=== PATIENT | male | born 1950 | race Caucasian/White ===

== ENCOUNTER 2016-08-14 02:18 | Emergency (ER) | payer MEDICAID ==
[~2016-08-14] VITALS: Ht 177.8 cm; Wt 72.6 kg
[2016-08-14 02:18] VITALS: BP_SYST 132
[2016-08-14] MEDS ORDERED: NACL 0.9% 1,000 ML IV ONE (03:05)
[2016-08-14 04:18] VITALS: BP_SYST 132
[2016-08-16] MEDS ORDERED: CEPH-568 PO (15:18)
[2016-08-16] MEDS ORDERED: ASEN2.5T SL (15:18)
[2016-08-16] MEDS ORDERED: SULF1TAB48 PO (15:18)
== END 2016-08-14 04:18 | disposition home or self-care (01) ==
LOC: SED 02:18
DX: E86.0 Dehydration (principal); Z88.1 Allergy status to other antibiotic agents
CPT/HCPCS: 96360; 99284; J7030

== ENCOUNTER 2016-08-19 12:52 | Emergency (ER) | payer MEDICAID ==
[~2016-08-19] VITALS: Ht 180.3 cm; Wt 88.5 kg
[2016-08-19 12:52] VITALS: BP_SYST 103
[2016-08-19 13:31] LABS: EOSINOPHILS # (AUTO) 0.1 K/uL (0.0-0.4); LYMPHOCYTES # (AUTO) 1.9 K/uL (1.0-5.5); MONOCYTES # (AUTO) 0.8 K/uL (0.0-1.0)
[2016-08-19 13:34] LABS: BASOPHILS % (AUTO) 0.3 % (0.0-2.0); EOSINOPHILS % (AUTO) 1.3 % (0.0-4.0); HEMATOCRIT 46.3 % (36-54); HEMOGLOBIN 15.2 g/dL (14.0-18.0); LYMPHOCYTES % (AUTO) 19.6 % (20.5-51.5); MEAN CORPUSCULAR HEMOGLOBIN 28 pg (27-31); MEAN CORPUSCULAR HGB CONC 33 % (32-36); MEAN CORPUSCULAR VOLUME 85 fL (79.0-98.0); MONOCYTES % (AUTO) 8.5 % (1.7-9.3); NEUTROPHILS # (AUTO) 7.1 K/uL (1.8-7.7); NEUTROPHILS % (AUTO) 70.3 % (40.0-70.0); PLATELET COUNT (AUTO) 301 K/uL (130-430); RED BLOOD CELL COUNT(AUTO) 5.45 MIL/uL (4.2-6.2); RED CELL DISTRIBUTION WIDTH 13.3 % (9.0-15.0); WHITE BLOOD COUNT (AUTO) 9.9 K/uL (4.8-10.8)
[2016-08-19 13:35] LABS: ANION GAP 6 (5-15); CALCIUM 8.8 mg/dL (8.4-11.0); CHLORIDE 91 mmol/L (98-107); CREATININE 1.32 mg/dL (0.55-1.30); POTASSIUM 4.8 mmol/L (3.5-5.1); SODIUM SERUM 127 mmol/L (136-145); UREA NITROGEN, BLOOD 23 mg/dL (8-21)
[2016-08-19 13:37] LABS: ALANINE AMINOTRANSFERASE 96 U/L (12-78); ALBUMIN 2.7 g/dL (3.4-4.8); ASPARTATE AMINOTRANSFERASE 23 U/L (10-37); TOTAL BILIRUBIN 0.6 mg/dL (0.0-1.0); TOTAL PROTEIN, SERUM 6.1 g/dL (6.4-8.3)
[2016-08-19 13:45] LABS: GFR AFRICAN AMERICAN 70 mL/min (>90)
[2016-08-19 13:47] LABS: GLUCOSE 608 mg/dL (70-99)
[2016-08-19 13:54] LABS: ACETONE, SERUM NEGATIVE (NEGATIVE)
[2016-08-19] MEDS ORDERED: INSULIN REGULAR, HUMAN 10 UNITS/0.1 ML INJ IVP ONE (14:00)
[2016-08-19 14:28] VITALS: BP_SYST 150
== END 2016-08-19 14:28 | disposition home or self-care (01) ==
LOC: SED 12:52
DX: E11.65 Type 2 diabetes mellitus with hyperglycemia (principal); J44.9 Chronic obstructive pulmonary disease, unspecified; I25.2 Old myocardial infarction; F17.210 Nicotine dependence, cigarettes, uncomplicated; Z71.6 Tobacco abuse counseling; Z88.1 Allergy status to other antibiotic agents; Z90.89 Acquired absence of other organs
CPT/HCPCS: 36415; 80053; 82009; 82962; 85025; 96372; 99284; J1815

== ENCOUNTER 2016-08-26 10:49 | Emergency (ER) | payer MEDICAID ==
[~2016-08-26] VITALS: Ht 180.3 cm; Wt 88.5 kg
--- NOTE | 2016-08-26 10:55 | NUR ---
Attempted to triage. Pt ambulated to cafeteria steady gait witnessed by staff.
[2016-08-26 11:11] VITALS: BP_SYST 103
--- NOTE | 2016-08-26 11:43 | NUR ---
Pt to bed 8
--- NOTE | 2016-08-26 11:44 | NUR ---
Dr. Desouza at bedside for evaluation
--- NOTE | 2016-08-26 11:45 | NUR ---
Pt states he needs an insulin prescription, his bs was 374. No other injuries/complaints per pt or noted.
--- NOTE | 2016-08-26 11:45 | NUR ---
ER at bedside examining patient.
[2016-08-26 12:12] LABS: BASOPHILS # (AUTO) 0.1 K/uL (0.0-0.2); BASOPHILS % (AUTO) 0.6 % (0.0-2.0); EOSINOPHILS # (AUTO) 0.1 K/uL (0.0-0.4); EOSINOPHILS % (AUTO) 1.3 % (0.0-4.0); HEMATOCRIT 44.4 % (36-54); HEMOGLOBIN 14.5 g/dL (14.0-18.0); LYMPHOCYTES % (AUTO) 22.4 % (20.5-51.5); MEAN CORPUSCULAR HEMOGLOBIN 28 pg (27-31); MEAN CORPUSCULAR HGB CONC 33 % (32-36); MEAN CORPUSCULAR VOLUME 86 fL (79.0-98.0); MONOCYTES # (AUTO) 0.7 K/uL (0.0-1.0); MONOCYTES % (AUTO) 8.4 % (1.7-9.3); NEUTROPHILS # (AUTO) 5.8 K/uL (1.8-7.7); NEUTROPHILS % (AUTO) 67.3 % (40.0-70.0); PLATELET COUNT (AUTO) 278 K/uL (130-430); RED BLOOD CELL COUNT(AUTO) 5.19 MIL/uL (4.2-6.2); RED CELL DISTRIBUTION WIDTH 13.3 % (9.0-15.0); WHITE BLOOD COUNT (AUTO) 8.7 K/uL (4.8-10.8)
[2016-08-26 12:19] LABS: ANION GAP 5 (5-15); CALCIUM 8.9 mg/dL (8.4-11.0); CHLORIDE 98 mmol/L (98-107); CREATININE 0.94 mg/dL (0.55-1.30); GLUCOSE 379 mg/dL (70-99); POTASSIUM 4.8 mmol/L (3.5-5.1); SODIUM SERUM 133 mmol/L (136-145); UREA NITROGEN, BLOOD 10 mg/dL (8-21)
[2016-08-26 12:21] LABS: GFR AFRICAN AMERICAN 104 mL/min (>90)
[2016-08-26 12:23] LABS: ACETONE, SERUM NEGATIVE (NEGATIVE)
[2016-08-26 12:24] LABS: ALANINE AMINOTRANSFERASE 59 U/L (12-78); ALBUMIN 2.8 g/dL (3.4-4.8); ASPARTATE AMINOTRANSFERASE 41 U/L (10-37); TOTAL BILIRUBIN 0.8 mg/dL (0.0-1.0); TOTAL PROTEIN, SERUM 6.4 g/dL (6.4-8.3)
[2016-08-26] MEDS ORDERED: INSULIN REGULAR, HUMAN 10 UNITS/0.1 ML INJ SUBCUT ONE (13:15)
--- NOTE | 2016-08-26 13:58 | NUR ---
Pt was given discharge instructions but needed insulin, which was given and informed pt to wait 30 minutes and I was going to recheck his BS. I went back 30 minutes later and pt had left. I called and left a message for the pt to call back. Addendum: 08/26/16 at 1532 by LEWIS Pt was given discharge instructions and a prescription for insulin, Monisha HANCOCK gave insrtuctions before the insulin was given, arm band was removed, and the pt verbalized understanding.
[2016-08-26 15:18] VITALS: BP_SYST 105
== END 2016-08-26 15:18 | disposition home or self-care (01) ==
LOC: SED 12:10
DX: E11.65 Type 2 diabetes mellitus with hyperglycemia (principal); J44.9 Chronic obstructive pulmonary disease, unspecified; I25.2 Old myocardial infarction; F31.9 Bipolar disorder, unspecified; Z88.1 Allergy status to other antibiotic agents
CPT/HCPCS: 36415; 80053; 82009; 85025; 96372; 99284; J1815

== ENCOUNTER 2016-09-14 02:56 | Emergency (ER) | payer MEDICAID ==
[~2016-09-14] VITALS: Ht 180.3 cm; Wt 86.2 kg
[2016-09-14 03:21] VITALS: BP_SYST 121
--- NOTE | 2016-09-14 03:21 | NUR ---
PT AMBULATORY TO BED 2
--- NOTE | 2016-09-14 03:22 | NUR ---
Pt states he came to ER to have his medication prescription refilled by a physician. Pt AAOx4, ambulatory with steady gait. No signs of acute distress noted. Pt denies any other complaints.
--- NOTE | 2016-09-14 03:25 | NUR ---
ER Dr. Sheppard at bedside examining patient.
[2016-09-14] MEDS ORDERED: CARV6.2554 PO (03:37)
[2016-09-14] MEDS ORDERED: GLU500 PO (03:38)
[2016-09-14] MEDS ORDERED: GLIP5TAB13 PO (03:38)
[2016-09-14 04:44] VITALS: BP_SYST 121
--- NOTE | 2016-09-14 04:44 | NUR ---
Patient given written and verbal discharge instructions and verbalizes understanding. ER MD discussed with patient the results and treatment provided. Patient in stable condition. ID arm band removed. Rx of Valium, Coreg, metformin, glipizide, given. Patient educated on pain management and to follow up with PMD. Pain Scale 0/10. Opportunity for questions provided and answered. Pt states he will take his antidiabetic medication as soon as he is able to. MD notified of pt's blood sugar reading. No change to orders per MD.
--- NOTE | 2016-09-14 09:18 | NUR ---
Pharmacy verification
== END 2016-09-14 04:44 | disposition home or self-care (01) ==
LOC: SED 02:56
DX: F41.1 Generalized anxiety disorder (principal); I50.9 Heart failure, unspecified; E11.9 Type 2 diabetes mellitus without complications; J44.9 Chronic obstructive pulmonary disease, unspecified; I25.2 Old myocardial infarction; F31.9 Bipolar disorder, unspecified; Z76.0 Encounter for issue of repeat prescription; Z88.0 Allergy status to penicillin; Z90.89 Acquired absence of other organs; F17.200 Nicotine dependence, unspecified, uncomplicated
CPT/HCPCS: 82962; 99284

== ENCOUNTER 2016-09-14 09:48 | Emergency (ER) | payer MEDICAID ==
[~2016-09-14] VITALS: Ht 180.3 cm; Wt 86.2 kg
[2016-09-14 09:48] VITALS: BP_SYST 141
[~2016-09-14 09:48] MED LIST: CARV6.2554 PO; GLIP5TAB13 PO; GLU500 PO
[2016-09-14] MEDS ORDERED: ALBUTEROL SULFATE 0.083% 2.5 MG/3 ML VIAL.NEB IH ONE (10:00)
[2016-09-14] MEDS ORDERED: IPRATROPIUM BROM 0.5 MG/2.5 ML VIAL.NEB (ATROVENT) IH ONE (10:00)
[2016-09-14 10:08] LABS: BASOPHILS # (AUTO) 0.1 K/uL (0.0-0.2); BASOPHILS % (AUTO) 0.6 % (0.0-2.0); EOSINOPHILS # (AUTO) 0.1 K/uL (0.0-0.4); EOSINOPHILS % (AUTO) 0.6 % (0.0-4.0); HEMATOCRIT 46.7 % (36-54); HEMOGLOBIN 15.3 g/dL (14.0-18.0); LYMPHOCYTES # (AUTO) 1.9 K/uL (1.0-5.5); LYMPHOCYTES % (AUTO) 14.1 % (20.5-51.5); MEAN CORPUSCULAR HEMOGLOBIN 28 pg (27-31); MEAN CORPUSCULAR HGB CONC 33 % (32-36); MEAN CORPUSCULAR VOLUME 86 fL (79.0-98.0); MONOCYTES # (AUTO) 1.1 K/uL (0.0-1.0); MONOCYTES % (AUTO) 7.8 % (1.7-9.3); NEUTROPHILS # (AUTO) 10.4 K/uL (1.8-7.7); NEUTROPHILS % (AUTO) 76.9 % (40.0-70.0); PLATELET COUNT (AUTO) 348 K/uL (130-430); RED BLOOD CELL COUNT(AUTO) 5.45 MIL/uL (4.2-6.2); RED CELL DISTRIBUTION WIDTH 13.1 % (9.0-15.0); WHITE BLOOD COUNT (AUTO) 13.6 K/uL (4.8-10.8)
[2016-09-14 10:11] LABS: BLOOD GAS PH 7.316 (7.350-7.450)
[2016-09-14 10:12] LABS: ABG TOTAL HEMOGLOBIN 15.9 G/dL (12.0-18.0); BLOOD O2Hb% 94.4 % (94.0-97.0)
[2016-09-14 10:13] LABS: BLOOD GAS COHb% 3.5 % (0.5-1.5); BLOOD GAS HHB 1.5 % (0.0-6.0)
[2016-09-14] MEDS ORDERED: FUROSEMIDE 100 MG/10 ML VIAL IVP ONE (10:15)
[2016-09-14 10:16] LABS: INR 1.2 (0.80-1.20); PROTHROMBIN TIME 13.3 SECS (9.5-12.5)
[2016-09-14 11:08] LABS: CALCIUM 8.8 mg/dL (8.4-11.0); CREATININE 1.08 mg/dL (0.55-1.30); POTASSIUM 5.4 mmol/L (3.5-5.1)
[2016-09-14 11:11] LABS: ALBUMIN 3.3 g/dL (3.4-4.8); TOTAL BILIRUBIN 1.1 mg/dL (0.0-1.0)
[2016-09-14] MEDS ORDERED: INSULIN REGULAR, HUMAN 10 UNITS/0.1 ML INJ IVP ONE ×2 (11:30→11:45)
[2016-09-14] MEDS ORDERED: INSULIN ASPART 100 UNITS/ML, 10 ML VIAL (NovoLOG) SUBCUT PRN ×3 (11:30→13:45)
[2016-09-14 11:44] LABS: ABG TOTAL HEMOGLOBIN 15.7 G/dL (12.0-18.0); BLOOD GAS BASE EXCESS 1.2 mmol/L (-3.0-3.0); BLOOD GAS COHb% 2.8 % (0.5-1.5); BLOOD GAS HHB 8.2 % (0.0-6.0); BLOOD O2Hb% 88.8 % (94.0-97.0)
[2016-09-14] MEDS ORDERED: DEXTROSE 50% JECT 50 ML DISP.SYRIN IVP PRN (11:45)
[2016-09-14 11:46] VITALS: BP_SYST 96
[2016-09-14] MEDS ORDERED: NITROGLYCERIN 1 INCH (GM) OINT. TP SCH (13:45)
[2016-09-14] MEDS ORDERED: IPRATROPIUM/ALBUTEROL SULFATE 3 ML AMPUL.NEB INH SCH (13:45)
[2016-09-14] MEDS ORDERED: ASPIRIN 81 MG TAB.CHEW PO ONE (15:45)
[2016-09-14] MEDS ORDERED: metFORMIN HCL 500 MG TABLET PO SCH (18:00)
[2016-09-14] MEDS ORDERED: CARVEDILOL 6.25 MG TABLET (COREG) PO SCH (21:00)
[2016-09-15] MEDS ORDERED: ASPIRIN 81 MG TAB.CHEW PO SCH (09:00)
[2016-09-18 13:35] LABS: BLOOD GAS BASE EXCESS -5.2 mmol/L (-3.0-3.0)
== END 2016-09-14 12:35 | disposition left against medical advice (07) ==
LOC: SED 09:48 → UNDOADMIN 11:35 → SIC 11:35
DX: I21.4 Non-ST elevation (NSTEMI) myocardial infarction (principal); I50.9 Heart failure, unspecified; J44.9 Chronic obstructive pulmonary disease, unspecified; I25.2 Old myocardial infarction; E11.9 Type 2 diabetes mellitus without complications; F31.9 Bipolar disorder, unspecified; Z88.1 Allergy status to other antibiotic agents; Z53.21 Procedure and treatment not carried out due to patient leaving prior to being seen by health care provider
CPT/HCPCS: 36415; 36600; 71010; 80053; 80061; 82803; 82962; 83605; 83880; 84484; 85025; 85610; 85730; 87040; 93005; 94640; 94660; 96372; 96374; 99285; J1815 ×2; J1940

== ENCOUNTER 2016-09-27 13:51 | Emergency (ER) | payer MEDICAID ==
[~2016-09-27] VITALS: Ht 180.3 cm; Wt 83.9 kg
[2016-09-27 13:52] VITALS: BP_SYST 117
[2016-09-27] MEDS ORDERED: NACL 0.9% 1,000 ML IV ONE (14:19)
[2016-09-27 15:00] LABS: BASOPHILS % (AUTO) 0.6 % (0.0-2.0); EOSINOPHILS # (AUTO) 0.1 K/uL (0.0-0.4); EOSINOPHILS % (AUTO) 1.7 % (0.0-4.0); HEMOGLOBIN 14.9 g/dL (14.0-18.0); LYMPHOCYTES # (AUTO) 1.8 K/uL (1.0-5.5); LYMPHOCYTES % (AUTO) 23.2 % (20.5-51.5); MEAN CORPUSCULAR HEMOGLOBIN 27 pg (27-31); MEAN CORPUSCULAR HGB CONC 32 % (32-36); MEAN CORPUSCULAR VOLUME 85 fL (79.0-98.0); MONOCYTES # (AUTO) 0.8 K/uL (0.0-1.0); MONOCYTES % (AUTO) 10.4 % (1.7-9.3); NEUTROPHILS % (AUTO) 64.1 % (40.0-70.0); PLATELET COUNT (AUTO) 298 K/uL (130-430); RED BLOOD CELL COUNT(AUTO) 5.44 MIL/uL (4.2-6.2); RED CELL DISTRIBUTION WIDTH 12.9 % (9.0-15.0); WHITE BLOOD COUNT (AUTO) 7.7 K/uL (4.8-10.8)
[2016-09-27 15:14] LABS: PROTHROMBIN TIME 10.4 SECS (9.5-12.5)
[2016-09-27 15:23] LABS: ANION GAP 5 (5-15); CALCIUM 9.4 mg/dL (8.4-11.0); CHLORIDE 100 mmol/L (98-107); CREATININE 0.92 mg/dL (0.55-1.30); GFR AFRICAN AMERICAN 106 mL/min (>90); GLUCOSE 268 mg/dL (70-99); POTASSIUM 4.2 mmol/L (3.5-5.1); SODIUM SERUM 134 mmol/L (136-145); UREA NITROGEN, BLOOD 15 mg/dL (8-21)
[2016-09-27 15:29] LABS: ASPARTATE AMINOTRANSFERASE 12 U/L (10-37); TOTAL BILIRUBIN 0.4 mg/dL (0.0-1.0)
[2016-09-27 15:30] LABS: ALANINE AMINOTRANSFERASE 19 U/L (12-78); ALBUMIN 3.4 g/dL (3.4-4.8)
[2016-09-27 15:50] LABS: ACETONE, SERUM NEGATIVE (NEGATIVE)
[2016-09-27 16:29] VITALS: BP_SYST 117
== END 2016-09-27 16:29 | disposition home or self-care (01) ==
LOC: SED 13:51
DX: Z76.0 Encounter for issue of repeat prescription (principal); I99.8 Other disorder of circulatory system; E11.9 Type 2 diabetes mellitus without complications; L03.032 Cellulitis of left toe; F17.210 Nicotine dependence, cigarettes, uncomplicated; J44.9 Chronic obstructive pulmonary disease, unspecified; Z71.6 Tobacco abuse counseling; Z88.8 Allergy status to other drugs, medicaments and biological substances
CPT/HCPCS: 36415; 73630; 80053; 82009; 83605; 85025; 85610; 85730; 87040; 96365; 96366; 99285; J1956; J7030

== ENCOUNTER 2017-02-03 20:30 | Emergency (ER) | payer MEDICAID ==
[~2017-02-03] VITALS: Ht 182.9 cm; Wt 99.8 kg
[2017-02-03 20:30] VITALS: BP_SYST 127
[2017-02-03] MEDS ORDERED: chlordiazePOXIDE HCL 25 MG CAPSULE PO ONE (21:00)
[2017-02-03] MEDS ORDERED: NACL 0.9% 1,000 ML IV ONE (21:00)
[2017-02-03 21:46] VITALS: BP_SYST 139
== END 2017-02-03 21:46 | disposition home or self-care (01) ==
LOC: SED 20:30
DX: F10.129 Alcohol abuse with intoxication, unspecified (principal); J44.9 Chronic obstructive pulmonary disease, unspecified; E11.9 Type 2 diabetes mellitus without complications; F41.9 Anxiety disorder, unspecified; F31.9 Bipolar disorder, unspecified; F17.200 Nicotine dependence, unspecified, uncomplicated; Z88.1 Allergy status to other antibiotic agents; Z90.89 Acquired absence of other organs
CPT/HCPCS: 96360; 99284; J7030

== ENCOUNTER 2017-04-07 16:12 | Inpatient (IN) | payer OTHER ==
[~2017-04-07] VITALS: Ht 180.3 cm; Wt 81.6 kg
[2017-04-07 20:16] VITALS: BP_SYST 104
[2017-04-07] MEDS ORDERED: cloNIDine HCL 0.1 MG TABLET PO SCH (22:15)
[2017-04-07] MEDS ORDERED: INSULIN ASPART 100 UNITS/ML, 10 ML VIAL (NovoLOG) SUBCUT PRN (22:15)
[2017-04-07] MEDS ORDERED: ONDANSETRON HCL 4 MG/2 ML VIAL IVP SCH (22:15)
[2017-04-07] MEDS ORDERED: DIF100 IV (22:25)
[2017-04-07] MEDS ORDERED: VANC250C11 IVPB (22:25)
[2017-04-07] MEDS ORDERED: CAT.1 PO (22:25)
[2017-04-07] MEDS ORDERED: SSNOVOLOG SUBCUT (22:25)
[2017-04-07] MEDS ORDERED: PIPE3.379 IV (22:25)
[2017-04-07] MEDS ORDERED: IBUP-1480 PO (22:25)
[2017-04-07] MEDS ORDERED: ONDA4VIA53 IVP (22:25)
[2017-04-07] MEDS ORDERED: FURO10VI27 IVP (22:25)
[2017-04-07] MEDS: MORPHINE 2 MG/ML INJ. SYRINGE IVP PRN (23:48)
[2017-04-08] MEDS: IBUPROFEN 800 MG TABLET PO PRN ×2 (00:34→16:20)
[2017-04-08] MEDS: NICOTINE 21 MG/24 HR PATCH.TD24 TD SCH ×2 (01:00→08:48)
[2017-04-08 02:13] LABS: BARBITURATE, URINE NEGATIVE (NEG <=200); BENZODIAZEPINE, URINE NEGATIVE (NEG <=150); CANNABINOID, URINE NEGATIVE (NEG <=50); COCAINE, URINE NEGATIVE (NEG <=150); METHAMPHETAMINES SCREEN,URINE NEGATIVE (NEG <=500); OPIATE, URINE POSITIVE (NEG <=100); PHENCYCLIDINE SCREEN,URINE NEGATIVE (NEG <=25); UR TRICYCLIC ANTIDEPRESSANTS NEGATIVE (NEG <=300); URINE AMPHETAMINE NEGATIVE (NEG <=500); URINE METHADONE NEGATIVE (NEG <=200); URINE OXYCODONE SCREEN NEGATIVE (NEG <=100); URINE PROPOXYPHENE SCREEN NEGATIVE (NEG <=300)
[2017-04-08] MEDS ORDERED: PIPERACILLIN/TAZOBACTAM 3.375 GM/VIAL (ZOSYN) IV ONE (02:40)
[2017-04-08] MEDS: MORPHINE 2 MG/ML INJ. SYRINGE IVP PRN ×2 (03:23→08:47)
[2017-04-08 05:58] VITALS: BP_SYST 102
[2017-04-08] MEDS ORDERED: PIPERACILLIN/TAZOBACTAM 3.375 GM/DEX-IS 50 ML PIGGYBACK IV SCH (06:00)
[2017-04-08] MEDS: INSULIN ASPART 100 UNITS/ML, 10 ML VIAL (NovoLOG) SUBCUT PRN ×2 (06:33→11:59)
[2017-04-08 06:42] LABS: BASOPHILS % (AUTO) 0.5 % (0.0-2.0); EOSINOPHILS # (AUTO) 0.1 K/uL (0.0-0.4); EOSINOPHILS % (AUTO) 1.2 % (0.0-4.0); HEMATOCRIT 41.8 % (36-54); HEMOGLOBIN 13.9 g/dL (14.0-18.0); LYMPHOCYTES # (AUTO) 1.2 K/uL (1.0-5.5); LYMPHOCYTES % (AUTO) 16.7 % (20.5-51.5); MEAN CORPUSCULAR HEMOGLOBIN 31 pg (27-31); MEAN CORPUSCULAR HGB CONC 33 % (32-36); MEAN CORPUSCULAR VOLUME 94 fL (79.0-98.0); MONOCYTES # (AUTO) 0.9 K/uL (0.0-1.0); MONOCYTES % (AUTO) 11.6 % (1.7-9.3); NEUTROPHILS # (AUTO) 5.2 K/uL (1.8-7.7); PLATELET COUNT (AUTO) 194 K/uL (130-430); RED BLOOD CELL COUNT(AUTO) 4.46 MIL/uL (4.2-6.2); RED CELL DISTRIBUTION WIDTH 17.2 % (9.0-15.0); WHITE BLOOD COUNT (AUTO) 7.4 K/uL (4.8-10.8)
[2017-04-08 06:50] LABS: CALCIUM 8.1 mg/dL (8.4-11.0); CREATININE 0.73 mg/dL (0.55-1.30)
[2017-04-08 08:00] VITALS: BP_SYST 108
[2017-04-08] MEDS: metFORMIN HCL 500 MG TABLET PO SCH ×2 (08:48→18:28)
[2017-04-08] MEDS ORDERED: VANCOMYCIN HCL 1 GM/NS PREMIX 250 ML IV SCH (09:00)
[2017-04-08] MEDS ORDERED: CARVEDILOL 6.25 MG TABLET (COREG) PO SCH (09:00)
[2017-04-08] MEDS ORDERED: FUROSEMIDE 40 MG/4 ML VIAL IVP SCH (09:00)
[2017-04-08] MEDS ORDERED: FLUCONAZOLE 100 mg/ NS 50 ML IV SCH (09:00)
[2017-04-08] MEDS ORDERED: METOLAZONE 5 MG TABLET PO ONE (10:30)
[2017-04-08] MEDS ORDERED: SPIRONOLACTONE 25 MG TABLET (ALDACTONE) PO ONE (10:45)
[2017-04-08 12:00] VITALS: BP_SYST 103
[2017-04-08] MEDS ORDERED: PIPERACILLIN/TAZOBACTAM 3.375 GM/ D5W 50 ML IV SCH ×2 (14:00)
[2017-04-08 16:00] VITALS: BP_SYST 98
[2017-04-08 17:56] VITALS: BP_SYST 106
[2017-04-08] MEDS ORDERED: SPIRONOLACTONE 25 MG TABLET (ALDACTONE) PO SCH (21:00)
[2017-04-09] MEDS ORDERED: METOLAZONE 5 MG TABLET PO SCH (09:00)
[2017-04-09] MEDS ORDERED: THIAMINE HCL 100 MG TABLET PO SCH (09:00)
[2017-04-09] MEDS ORDERED: FOLIC ACID 1 MG TABLET PO SCH (09:00)
== END 2017-04-08 19:05 | disposition short-term general hospital (02) | DRG 729 ==
LOC: SMU 19:38 → STU 04-08 08:37
PROVIDERS: ADMIT Internal Medicine Infectious Disease; ATTEND Internal Medicine Infectious Disease
DX: N43.3 Hydrocele, unspecified (principal); J18.9 Pneumonia, unspecified organism; I11.0 Hypertensive heart disease with heart failure; I42.6 Alcoholic cardiomyopathy; E11.65 Type 2 diabetes mellitus with hyperglycemia; L03.115 Cellulitis of right lower limb; J44.0 Chronic obstructive pulmonary disease with (acute) lower respiratory infection; L03.116 Cellulitis of left lower limb; L97.529 Non-pressure chronic ulcer of other part of left foot with unspecified severity; N49.2 Inflammatory disorders of scrotum; F10.10 Alcohol abuse, uncomplicated; F17.210 Nicotine dependence, cigarettes, uncomplicated; S91.109A Unspecified open wound of unspecified toe(s) without damage to nail, initial encounter; X58.XXXA Exposure to other specified factors, initial encounter; Y93.89 Activity, other specified; Y92.89 Other specified places as the place of occurrence of the external cause; Y99.8 Other external cause status; Z59.0 Homelessness; Z86.73 Personal history of transient ischemic attack (TIA), and cerebral infarction without residual deficits
CPT/HCPCS: 36415; 71045; 80048; 80307; 82962; 83036; 83735-TC; 83880; 84484; 85025; 87081; J1450; J1815; J1940; J2270; J2543; J3370; J7060